=== PATIENT | male | born 1960 | race Caucasian/White ===

== ENCOUNTER → 2017-05-26 | Outpatient (CLI) | payer OTHER | LOC: M LAB 11:33 | PROVIDERS: ATTEND Ophthalmology | DX: H20.9 Unspecified iridocyclitis (principal) ==

== ENCOUNTER 2023-02-06 08:30 | Day surgery (SDC) | payer MEDICARE, OTHER ==
[~2023-02-06] VITALS: Ht 190.5 cm; Wt 112.9 kg
[2023-02-06] MEDS: NS 1,000 ML IV ONE (06:00)
[~2023-02-06 08:30] MED LIST: ACET32TAB PO; AMLO25TA PO; CIAL5TAB PO; NAPR-885 PO; XALA0.007 OU
[2023-02-06] MEDS ORDERED: LIDOCAINE 2% 100MG/5ML SDV (FOR ANES.) As Ordered ONE (09:49)
[2023-02-06] MEDS ORDERED: propofoL 200 MG/20 ML VIAL As Ordered ONE (09:49)
[2023-02-06 09:58] VITALS: TEMP 98
[2023-02-06 10:15] VITALS: BP 133/88; O2SAT 96
== END 2023-02-06 10:27 | disposition home or self-care (01) ==
LOC: M OPP 08:30
PROVIDERS: ATTEND Internal Medicine Gastroenterology
DX: Z12.11 Encounter for screening for malignant neoplasm of colon (principal); Z86.010 Personal history of colon polyps; Z80.0 Family history of malignant neoplasm of digestive organs; D12.2 Benign neoplasm of ascending colon; D12.5 Benign neoplasm of sigmoid colon; K57.30 Diverticulosis of large intestine without perforation or abscess without bleeding; K64.8 Other hemorrhoids; G47.33 Obstructive sleep apnea (adult) (pediatric); Z99.89 Dependence on other enabling machines and devices; Z79.1 Long term (current) use of non-steroidal anti-inflammatories (NSAID); Z79.83 Long term (current) use of bisphosphonates; Z79.630 Long term (current) use of alkylating agent; Z79.899 Other long term (current) drug therapy